=== PATIENT | male | born 1970 ===

== ENCOUNTER 2020-01-15 06:38 | Day surgery (SDC) | payer BC, OTHER, SELFPAY ==
[2020-01-13 12:56] VITALS: BMI 35.4
--- NOTE | 2020-01-15 06:55 | W.PM.OPSUD ---
Surgery/Procedure H&P Update DATE OF PROCEDURE: January 15, 2020 DATE H&P PERFORMED: 01/13/20 H&P UPDATE INFORMATION: No changes to prior documentation PLANNED PROCEDURE: Operation Date: 01/15/20 07:30 Proposed Procedures p EGD(Not Applicable) - Kemar Stephens MD
--- NOTE | 2020-01-15 07:01 | ANES.PREANE2 ---
Pre-Anesthetic Assessment Pre-Anesthetic Assessment: Height/Weight: Height 1.75 m Weight 108.862 kg Preop Diagnosis: abdominal pain and chest discomfort Proposed Procedure: Operation Date: 01/15/20 07:30 Proposed Procedures p EGD(Not Applicable) - Kemar Stephens MD Familial anesthetic complications: denies Was Beta Kristian taken within 24 hours: Yes Last Intake: 00:02 Social: Social History: Alcohol (seldomly) and No tobacco (quit over a year ago) Exam: Pre-Anes Outpt Exam: alert, oriented x 3 and clear to auscultation bilaterally Airway: Cervical ROM: WNL MP: 2 Pulmonary: Pulmonary: DOW (SOB with walking to mail box and stairs) CV/HEM: CV/HEM: Angina (Stable) (angiogram done 2 months ago in [facility] patient says everything checked out ), HTN and NH (stents x3 patient had to have second intervention 2 months later for stents having blockage ) : : None reported Hepatic: Hepatic: None reported GI: GI: GERD (controlled somewhat with meds ) Metabolic: Metabolic: Morbid obesity Musc/skel: Musc/skel: OA/DJD Neuropsych: Neuropsych: Anxiety Anesthetic Plan: ASA status: 3 Anesthesia: Anesthesia Evaluation and MAC Data Anesthesia Cardiac Studies: No Data to Display
[2020-01-15 07:10] VITALS: BP 157/98; PULSE 68; RESP 18; TEMP 36.1; O2SAT 95
[2020-01-15] MEDS: sodium chloride 0.9% 1,000 ML 30 ML IV (07:18)
[2020-01-15 07:51] VITALS: BP 98/61; PULSE 64; RESP 16; TEMP 36.3; O2SAT 93
--- NOTE | 2020-01-15 07:54 | ANE.PACU2 ---
Inpatient post-anesthesia follow up: Airway intact: Yes Vital signs: Temperature 97.0 F Pulse Rate 68 Respiratory Rate 18 Blood Pressure 157/98 Pulse Oximetry 95 Oxygen Delivery Me thod Room Air Oxygen Flow Rate Fraction of Inspir ed Oxygen Hydration adequate: Yes Nausea and vomiting: No Pain level: 1 Mental status: Baseline
[2020-01-15 08:06] VITALS: BP 100/65; PULSE 71; RESP 16; TEMP 36.3; O2SAT 96
[2020-01-16 08:59] LABS: H. Pylori / CLO Test Negative
== END 2020-01-15 08:30 | disposition home or self-care (01) ==
PROVIDERS: PCP Internal Medicine; Visit Provider Surgery
PROC: 0DJ08ZZ Inspection of Upper Intestinal Tract, Via Natural or Artificial Opening Endoscopic (ICD-10-PCS; CPT 43235; principal; 2020-01-15 07:30)
DX: R07.9 Chest pain, unspecified (principal); R12 Heartburn; K21.9 Gastro-esophageal reflux disease without esophagitis; K44.9 Diaphragmatic hernia without obstruction or gangrene; K29.70 Gastritis, unspecified, without bleeding; K29.80 Duodenitis without bleeding; I10 Essential (primary) hypertension; I25.2 Old myocardial infarction; Z95.5 Presence of coronary angioplasty implant and graft; E66.01 Morbid (severe) obesity due to excess calories; Z68.35 Body mass index [BMI] 35.0-35.9, adult; M19.90 Unspecified osteoarthritis, unspecified site; Z87.891 Personal history of nicotine dependence
CPT/HCPCS: 12345; 43239; 87077; J2704

== ENCOUNTER 2021-07-22 05:30 | Emergency (ER) | payer BC, OTHER, SELFPAY ==
[2021-07-22 05:36] VITALS: BP 137/91; PULSE 71; RESP 18; TEMP 36.6; O2SAT 98; BMI 31.8
--- NOTE | 2021-07-22 06:07 | ED_ITS ---
HPI - Extremity Problem General: Chief complaint: Extremity Injury, Lower Stated complaint: Possible Gout in lt knee Time Seen by Provider: 07/22/21 05:45 History of Present Illness: HPI Narrative: 51-year-old male presents emergency room complaining of left knee pain that began yesterday and worsened overnight. He took some indomethacin. Penicillin prescribed for gout and that did seem to help it. Initially began in his left knee is also bothering his fourth and fifth toes on the left foot no trauma. He has not had any increased activity falling twisting jarring etc. that precipitated this. He denies any fever sweats or chills no calf pain no chest pain or shortness of breath. He has been treated for gout in the past. MD Complaint: joint pain Onset (ago): hour(s) Pain Consistency: constant Location: left and lower extremity Quality: sharp Radiation: none Relieving factors: immobilization and medication (Indomethacin) Exacerbating factors: range of motion, weight bearing, walking and palpation Associated symptoms: Deny arthralgias, chest pain, fever(s), myalgias, rash or short of breath Review of Systems Const: Denies: fever(s) ENMT: Denies: throat pain, ear or mastoid pain, nasal discharge or nasal congestion Card: Denies: chest pain Resp: Denies: dyspnea, productive cough or non-productive cough GI: Denies: abdominal pain, nausea, vomiting, hematemesis, coffee ground emesis, diarrhea, constipation, bloating, hematochezia or melena : Denies: flank pain, dysuria, urinary frequency or urinary urgency Skin/Breast: Denies: rash PFSH ED PFSH: Medical History (Updated 07/22/21 @ 06:11 by Ishaan Ferreira DO) Gastroesophageal reflux disease Gout Hypertension Physical Exam Const: COMMON NORMALS: no acute distress GENERAL APPEARANCE: cooperative and comfortable ORIENTATION/CONSCIOUSNESS: Yes awake, Yes oriented to person, Yes oriented to place and Yes oriented to time HENMT: COMMON NORMALS: normocephalic, atraumatic and hearing grossly normal bilaterally HEAD & SCALP: normocephalic and atraumatic Neck/C-Spine: COMMON NORMALS: no JVD Resp: COMMON NORMALS: normal respiratory effort, No retractions, No use of accessory muscles and clear to auscultation bilaterally AUSCULTATION: clear to auscultation bilaterally Cardio: COMMON NORMALS: no JVD, regular rate, regular rhythm and No murmurs present (Cardio) RATE: regular rate RHYTHM: regular rhythm Extremity: OTHER: Mild joint effusion in the left knee slightly warm to the touch no erythema noted exquisitely tender to touch and palpation, range of motion. Fourth and fifth toes similar on the left asphalt heater tender to touch very mild swelling painful with passive range of motion. Neuro: SENSORIUM/ORIENTATION: Yes oriented to person, Yes oriented to place and Yes oriented to time Skin: COMMON NORMALS: no rashes or lesions noted GENERAL SKIN EXAM: no rashes or lesions noted Course Vital Signs: Vital signs: Vital Signs Temperature 97.8 F 07/22/21 05:36 Pulse Rate 71 07/22/21 05:36 Respiratory Rate 18 07/22/21 05:36 Blood Pressure 137/91 07/22/21 05:36 Pulse Oximetry 98 07/22/21 05:36 MDM - Extremity (Nontraumatic) MDM Narrative: Medical decision making narrative: Gouty arthritis based on clinical exam. Patient has already had some improvement with use of indomethacin. Given dexamethasone sputum and prednisone taper also given diclofenac to use as needed follow-up with his primary care doctor. Return if has significant worsening. Discharge Plan Discharge Patient Disposition: Home Clinical Impression: Gout Condition: Stable Prescriptions: New diclofenac sodium 75 mg tablet,delayed release (DR/EC) 75 mg PO Q12H PRN (Reason: pain) Qty: 20 RF: 0 prednisone 20 mg tablet 20 mg PO DAILY Qty: 15 RF: 0 No Action carvedilol 25 mg tablet 25 mg PO BID RF: 0 isosorbide mononitrate 30 mg tablet extended release 24 hr 30 mg PO DAILY RF: 0 amlodipine [Norvasc] 5 mg tablet 5 mg PO DAILY RF: 0 pantoprazole 40 mg tablet,delayed release (DR/EC) 40 mg PO BID RF: 0 lisinopril 40 mg tablet 40 mg PO DAILY RF: 0 coenzyme Q10 [CoQ-10] 100 mg Capsule 100 mg PO DAILY RF: 0 glucosamine sulfate 1,000 mg Capsule 1,000 mg PO DAILY RF: 0 bupropion HCl 150 mg tablet extended release 24 hr 150 mg PO DAILY RF: 0 prasugrel 10 mg tablet 10 mg PO DAILY RF: 0 aspirin [Aspirin Low Dose] 81 mg Tablet,Delayed Release (Dr/Ec) 81 mg PO DAILY RF: 0 Discharge Orders: Discharge ED (Routine); Ordered 07/22/21 Ordered By: Ishaan Ferreira Referrals: Sahil Tello DO [Primary Care Provider] - Patient Instructions: Opioid Safety Coding Level of Care Code ED [employer] Equipment Operator for Trevon Back
[2021-07-22] MEDS: ketorolac 60 mg/2 mL INJ IM (06:12)
[2021-07-22] MEDS: dexamethasone 10 mg/mL INJ IM (06:12)
[2021-07-22 06:35] VITALS: BP 119/73; PULSE 66; RESP 16; TEMP 36.6; O2SAT 97
== END 2021-07-22 06:36 | disposition home or self-care (01) ==
PROVIDERS: Emergency Provider Family Medicine; PCP Internal Medicine
DX: M10.9 Gout, unspecified (principal); Z79.82 Long term (current) use of aspirin; I10 Essential (primary) hypertension; K21.9 Gastro-esophageal reflux disease without esophagitis
CPT/HCPCS: 96372; 99283; J1100; J1885